=== PATIENT | female | born 1995 | race Hispanic/Latino ===

== ENCOUNTER 2017-01-08 23:03 | Emergency (ER) | payer OTHER ==
[~2017-01-08] VITALS: Ht 165.1 cm; Wt 64.9 kg
[2017-01-08 23:10] VITALS: BP 101/65
--- NOTE | 2017-01-09 00:27 | ED UPPER/LOWER EXTREMITY COMPL ---
History of Present Illness General Chief Complaint: Foot or Ankle Injury Stated Complaint: LEFT ANKLE PAIN Source: patient Exam Limitations: no limitations Vital Signs & Intake/Output Vital Signs & Intake/Output Vital Signs Date Time Temp Pulse Resp B/P B/P Pulse O2 O2 Flow FiO2 Mean Ox Delivery Rate 01/08 2310 98.1 71 18 101/65 98 Room Air ED Intake and Output 01/09 0000 01/08 1200 Intake Total Output Total Balance Patient 143 lb Weight Weight Reported by Patient Measurement Method Allergies Coded Allergies: No Known Allergies (01/08/17) Reconcile Medications No Known Home Medications Triage Note: TRIAGE: PT TO ER WITH [facility] C/C L ANKLE PAIN S/P INJURY APPROX 2 PM. STATES SHE WAS PLAYING SOCCER, GOT KICKED, FELL ON THE ANKLE AND IT ROLLED. HAS HAD PAIN SINCE. TOOK MOTRIN AT 9 PM. PT CURRENTLY , S/P 9 MONTHS AGO. UNSURE OF LMP. Triage Nurses Notes Reviewed? yes Onset: Gradual Duration: hour(s): Timing: recent history Severity: mild, moderate Pain/Injury Location: Left: Ankle. Method of Injury: sports injury Modifying Factors: Improves With: rest. Worsens With: movement. Associated Symptoms: swelling : No Patient currently breastfeeds: Yes HPI: 21 yo woman in prior good health, was playing soccer around 2pm when "someome kicked my ankle and it rolled underneath me." She notes that the pain and swelling has gotten worse over the past several hours. She notes no other injury. Past History Travel History Traveled to [place] past 21 day No Medical History Any Pertinent Medical History? see below for history Neurological: NONE EENT: NONE Cardiovascular: NONE Respiratory: NONE Gastrointestinal: NONE Hepatic: NONE Renal: NONE Musculoskeletal: NONE Psychiatric: NONE Endocrine: NONE Blood Disorders: NONE Cancer(s): NONE XM1 TANK DRIVER/Reproductive: NONE Surgical History Surgical History: none Psychosocial History What is your primary language Malagasy Tobacco Use: Never used ETOH Use: denies use Illicit Drug Use: denies illicit drug use Family History Hx Contributory? No Review of Systems Review of Systems Constitutional: Reports: no symptoms. EENTM: Reports: no symptoms. Respiratory: Reports: no symptoms. Cardiovascular: Reports: no symptoms. Gastrointestinal/Abdominal: Reports: no symptoms. Genitourinary: Reports: no symptoms. Musculoskeletal: Reports: no symptoms. Skin: Reports: no symptoms. Neurological/Psychological: Reports: no symptoms. Hematologic/Endocrine: Reports: no symptoms. Immunological: Reports: no symptoms. All Other Systems: Reviewed and Negative Physical Exam Physical Exam General Appearance: well developed/nourished, mild distress Head: atraumatic Eyes: Bilateral: normal appearance. Ears, Nose, Throat: normal pharynx, normal ENT inspection, hearing grossly normal Neck: normal inspection, supple Cardiovascular/Respiratory: regular rate/rhythm Back: normal inspection Foot Left: swelling at left lateral malleolus with focal tenderness. pain elicited with inversion of left ankle. Normal light touch/strength. Skin: intact, normal color, warm/dry Lymphatic: no anterior cervical roger Progress Differential Diagnosis: contusion, dislocation, fracture, sprain Plan of Care: Orders Procedure Date/time Status URINE 01/09 29 Complete Laboratory Tests 01/09/17 0040: Urine Test NEGATIVE Diagnostic Imaging: Viewed by Me: Radiology Read. Discussed w/RAD: Radiology Read. Radiology Impression: left ankle - no fx. Comments: PATIENT: JULI MAGDALENO PRESENT AGE: 21 PATIENT ACCOUNT NO: [id number] : 94 LOCATION: [facility] ORDERING PHYSICIAN: JOSE MONTES MD SERVICE DATE: 01/09/17 EXAM TYPE: RAD - XRY-ANKLE 3 OR MORE VIEWS L EXAMINATION: XR ANKLE, LEFT CLINICAL INFORMATION: Left ankle pain COMPARISON: None TECHNIQUE: AP, lateral, and mortise views of the left ankle. FINDINGS: Osseous alignment is anatomic. No acute fracture is seen. No significant effusion. Lateral soft tissue swelling is noted. IMPRESSION: No fracture identified. Lateral soft tissue swelling. DICTATED BY: AMY COLE MD DATE/TIME DICTATED:01/09/17212 OPERATOR COATING FURNACE:IBAN DATE/TIME TRANSCRIBED:01/09/17212 CONFIDENTIAL, DO NOT COPY WITHOUT APPROPRIATE AUTHORIZATION. <Electronically signed in Other Vendor System> SIGNED BY: AMY COLE MD 01/09/17217 Departure Departure Disposition: HOME OR SELF CARE Condition: Stable Clinical Impression Primary Impression: Left ankle sprain Referrals: PATIENT HAS NO PRIMARY CARE DR (PCP/Family) Departure Forms: Customer Survey General Discharge Information Prescriptions: Current Visit Scripts No Known Home Medications Comments mauricio bandage to left ankle, encouraged close follow up, referred to ortho.
--- NOTE | 2017-01-09 02:18 | RADIOLOGY REPORT ---
EXAMINATION: XR ANKLE, LEFT CLINICAL INFORMATION: Left ankle pain COMPARISON: None TECHNIQUE: AP, lateral, and mortise views of the left ankle. FINDINGS: Osseous alignment is anatomic. No acute fracture is seen. No significant effusion. Lateral soft tissue swelling is noted. IMPRESSION: No fracture identified. Lateral soft tissue swelling.
== END 2017-01-09 02:49 ==
LOC: ERH 23:03
DX: S93.402A Sprain of unspecified ligament of left ankle, initial encounter (principal); W51.XXXA Accidental striking against or bumped into by another person, initial encounter; Y93.66 Activity, soccer; Y92.9 Unspecified place or not applicable
CPT/HCPCS: 73610-LT; 81025